=== PATIENT | female | born 1955 | race Two or more races ===

== ENCOUNTER → 2023-12-19 06:29 | Day surgery (SDC) | payer MEDICARE, OTHER, SELFPAY | LOC: GI 06:29 | PROVIDERS: ATTENDING PHYSICIAN Internal Medicine Gastroenterology | DX: K62.5 Hemorrhage of anus and rectum (principal); K64.0 First degree hemorrhoids; R19.7 Diarrhea, unspecified; K52.839 Microscopic colitis, unspecified; K63.5 Polyp of colon | CPT/HCPCS: 45380; 88305 ==